=== PATIENT | female | born 1990 | race Caucasian/White ===

== ENCOUNTER 2017-11-12 15:15 | Emergency (ER) | payer BC | END 2017-11-12 15:58 | disposition left against medical advice (07) | LOC: ERS 15:15 | DX: Z53.21 Procedure and treatment not carried out due to patient leaving prior to being seen by health care provider (principal) ==

== ENCOUNTER 2017-11-28 11:21 | Emergency (ER) | payer BC, OTHER | END 2017-11-28 11:48 | disposition home or self-care (01) | LOC: ERS 11:21 | DX: O99.613 Diseases of the digestive system complicating pregnancy, third trimester (principal); K02.9 Dental caries, unspecified; O99.343 Other mental disorders complicating pregnancy, third trimester; F41.9 Anxiety disorder, unspecified; Z3A.30 30 weeks gestation of pregnancy | CPT/HCPCS: 99282 ==

== ENCOUNTER 2018-01-19 15:01 | Day surgery (SDC) | payer BC, OTHER ==
[2018-01-19 15:28] VITALS: BP 135/92
[2018-01-19 15:29] VITALS: BMI 24.8
[2018-01-19] MEDS ORDERED: Ondansetron HCl/PF 4 MG/2 ML Vial IVP PRN (16:18)
[2018-01-19] MEDS ORDERED: Lactated Ringer's 1,000 ML IV SCH ×2 (16:30)
[2018-01-19 16:57] LABS: #Eosinphils 0.1 thou/uL (0.0-0.7); #Monocytes 0.5 thou/uL (0.11-0.59); #Neutrophils 5.7 thou/uL (1.40-6.50); %Basophils 0.1 % (0.0-1.0); %Eosinophils 0.9 % (0.0-10.0); %Lymphocytes 24.1 % (21.0-51.0); %Monocytes 6.1 % (0.0-10.0); %Neutrophils 68.7 % (42.0-75.0); Hemoglobin 10.5 g/dL (12.0-16.0); Mean Corpuscular HGB CONC 35.9 g/dL (32.0-36.0); Mean Corpuscular Hemoglobin 32.4 pg (27.0-31.0); Mean Corpuscular Volume 90.4 fL (78.0-98.0); Mean Platelet Volume 7.2 fL (7.4-10.4); Platelet Count 154 thou/uL (130-400); RBC Distribution Width 14.8 % (11.5-14.5); Red Blood Cell (RBC) Count 3.24 mill/uL (4.20-5.40); White Blood Cell (WBC) Count 8.3 thou/uL (4.8-10.8)
[2018-01-19 17:13] LABS: AST (SGOT) 16 U/L (5-34); Anion Gap 14 mmol/L (10-20); BUN (Urea Nitrogen) 5 mg/dL (7.0-18.7); Calc. Creatinine Clearance 176 mL/min (70-130); Calcium 9.1 mg/dL (7.8-10.44); Carbon Dioxide 18 mmol/L (22-29); Chloride 108 mmol/L (98-107); Estimated GFR-MDRD Greater than 90; Glucose 80 mg/dL (70-105); Potassium 3.3 mmol/L (3.5-5.1); Sodium 137 mmol/L (136-145)
[2018-01-19] MEDS ORDERED: Acetaminophen 1,000 MG in Premix Bag 1 BAG IVPB SCH (18:30)
[2018-01-19] MEDS ORDERED: Promethazine HCl 25 MG/ML VIAL IM/IV PRN (19:23)
--- NOTE | 2018-01-19 20:51 | PRG ---
DATE OF SERVICE: 01/19/2018 TIME OF SERVICE: 2000 hours OB ED NOTE PRESENTING COMPLAINT: "I feel like I have the flu and occasional contractions." HISTORY OF PRESENT ILLNESS: Ms. Mar is a 27-year-old 4, para 2, status post x2 with an TOMEKA in a week and a half, placing her at 38 and 3 weeks, who presents complaining of flu-like sym ptoms, myalgias. She reports an active fetus and occasional contractions. She denies rupture of mem branes. OBSTETRIC AND GYNECOLOGIC HISTORY: x2. No history of dysplasia. No history of STDs. Blood typ e O positive, antibody negative, Pap negative, rubella immune, VDRL nonreactive. Hepatitis B, GC chl amydia negative. The patient's group B strep is pending. Of note, on review of the hospital labs, t he patient had 2 positive group B strep urine cultures back in 2016. PAST MEDICAL HISTORY: Denies. PAST SURGICAL HISTORY: Denies. ALLERGIES: Denies. MEDICATIONS: vitamins. SOCIAL HISTORY: Denies tobacco, alcohol, or drug abuse. FAMILY HISTORY: Noncontributory. REVIEW OF SYSTEMS: Noncontributory. PHYSICAL EXAMINATION: GENERAL: White female, somewhat uncomfortable in appearance. VITAL SIGNS: Temperature 99.9, pulse 105, blood pressure 135/92, respirations 18. HEENT: Within normal limits. LUNGS: Clear to auscultation bilaterally. HEART: Regular rhythm. BREASTS: No masses bilaterally. ABDOMEN: Soft, nontender. No rebound or guarding. PELVIC: Vulva without lesions. Vagina without discharge. Cervix, parous, 1 to 2, 50, and -2. Ceph alic, bag of water intact, ballots with ease. EXTREMITIES: Without clubbing, cyanosis, or edema. LABORATORY STUDIES: White count was normal at 8.3, hematocrit was 29.3, platelet count was 154. Bas e met was within normal limits and AST was normal. The patient received approximately a liter and a half to 2 liters of IV fluids as well as Ofirmev, Zo emily, and Phenergan. She felt marginally better. Her temperature decreased to 99.5. Her pulse decr eased to 91. As I discussed with the patient, it appeared that she just had a viral syndrome without any localizing foci. She was discharged home. She is to follow up in [address] Conn with [facility].
[2018-01-19 21:17] VITALS: TEMP 99.2
== END 2018-01-19 21:00 | disposition home health service (06) ==
LOC: L&D/OP 15:01
PROVIDERS: ATTEND Obstetrics & Gynecology
DX: O99.89 Other specified diseases and conditions complicating pregnancy, childbirth and the puerperium (principal); J11.1 Influenza due to unidentified influenza virus with other respiratory manifestations; M79.1 Myalgia; Z3A.38 38 weeks gestation of pregnancy
CPT/HCPCS: 36415; 59025; 80048; 84450; 85025; 96360; 96361; 96366; 96372; 96375; 99283; J0131; J2405; J2550

== ENCOUNTER 2018-01-28 18:44 | Inpatient (IN) | payer BC, OTHER ==
[~2018-01-28 18:44] MED LIST: Acetaminophen/Codeine 30-300mg Tablet PO PRN; Lidocaine 1% (PF) 30 ML VIAL SC PRN; Misoprostol 200 MCG TAB PR PRN; NS / Oxytocin 40 units/1000ml 1,000 ML IV PRN; NS w/ Oxytocin 10 units 500 ML IV SCH; Ondansetron HCl/PF 4 MG/2 ML Vial IVP PRN; Promethazine HCl 25 MG/ML VIAL IM PRN
[2018-01-28] MEDS ORDERED: Sodium Chloride 0.9% (PF) 10 ML VIAL ONE (20:58)
[2018-01-28] MEDS ORDERED: Lidocaine 2% MPF 10 ML AMP (For Epidural Use) ONE (20:58)
[2018-01-28] MEDS ORDERED: Bupivacaine 0.25% HCL 30 ML VIAL ONE (20:58)
[2018-01-28 22:18] VITALS: BMI 24.9
[2018-01-28] MEDS: Lactated Ringer's 1,000 ML IV SCH (22:23)
[2018-01-28] MEDS: Misoprostol 100 MCG TAB VAG SCH (22:47)
[2018-01-28 22:49] LABS: Hemoglobin 10.6 g/dL (12.0-16.0); Mean Corpuscular HGB CONC 35.5 g/dL (32.0-36.0); Mean Corpuscular Hemoglobin 32.1 pg (27.0-31.0); Mean Corpuscular Volume 90.6 fL (78.0-98.0); Mean Platelet Volume 7.2 fL (7.4-10.4); Platelet Count 147 thou/uL (130-400); RBC Distribution Width 14.7 % (11.5-14.5); Red Blood Cell (RBC) Count 3.29 mill/uL (4.20-5.40); White Blood Cell (WBC) Count 9.1 thou/uL (4.8-10.8)
[2018-01-28] MEDS ORDERED: Zolpidem Tartrate 5 MG TAB PO PRN (23:24)
[2018-01-28 23:28] LABS: HBSAg Index 0.17 S/CO (0-0.99); Hep B Surf Ag Non-Reactive S/CO (NonReactive); Syphilis Antibody Nonreactive (Nonreactive); Syphilis Antibody Index 0.05 S/CO (<1.00 Non-Reactive)
[2018-01-29] MEDS ORDERED: Butorphanol Tartrate 1 MG/ML VIAL ONE (01:22)
[2018-01-29] MEDS ORDERED: DISCONTINUE ALL PREVIOUS NARCOTICS FS SCH (01:30)
[2018-01-29] MEDS: Lactated Ringer's 1,000 ML IV SCH ×2 (01:56→08:33)
[2018-01-29] MEDS: Bupivacaine 0.75% 13.4 ML, fentaNYL Citrate/PF 400 MCG in Sodium Chloride 0.9% 78.6 ML EPIDURAL SCH ×2 (02:14→08:26)
[2018-01-29] MEDS ORDERED: Ondansetron HCl/PF 4 MG/2 ML Vial IVP PRN (02:16)
[2018-01-29] MEDS ORDERED: ePHEDrine/0.9% NaCl/PF SYRINGE 50 mg/10 ml SLOW IVP PRN (02:16)
[2018-01-29] MEDS ORDERED: Lactated Ringer's 500 ML IV PRN (02:16)
[2018-01-29] MEDS ORDERED: diphenhydrAMINE 50 MG/ML VIAL IVP PRN (02:16)
[2018-01-29] MEDS ORDERED: Eucerin (Mineral Oil/Petrolatum,White) 30 gm Jar TOP PRN (02:16)
[2018-01-29] MEDS ORDERED: Acetaminophen 325 MG TAB PO PRN (02:16)
[2018-01-29] MEDS ORDERED: Naloxone HCl 0.4 mg/ml Vial IVP PRN ×2 (02:16)
[2018-01-29] MEDS ORDERED: Promethazine HCl 25 MG/ML VIAL IM PRN (02:16)
[2018-01-29] MEDS ORDERED: Communication Order-Pharmacy FS SCH (02:30)
[2018-01-29] MEDS ORDERED: fentaNYL Citrate/PF 400 MCG, Bupivacaine 0.5% 20 ML in Sodium Chloride 0.9% 72 ML EPIDURAL SCH (02:30)
[2018-01-29] MEDS: Misoprostol 100 MCG TAB VAG SCH (04:35)
[2018-01-29] MEDS ORDERED: Calcium Carbonate 500 MG ChewTAB PO SCH (07:45)
[2018-01-29] MEDS ORDERED: Carboprost 250 MCG/ML AMP ONE (10:18)
[2018-01-29] MEDS ORDERED: Milk Of Magnesia 30 ML UDCUP PO PRN (12:49)
[2018-01-29] MEDS ORDERED: NS / Oxytocin 40 units/1000ml 1,000 ML IV SCH (12:49)
[2018-01-29] MEDS ORDERED: Adacel (T-DAP) 0.5 ML VIAL IM ONE (12:49)
[2018-01-29] MEDS ORDERED: diphenhydrAMINE 25 MG CAP PO PRN (12:49)
[2018-01-29] MEDS ORDERED: Benzocaine/Menthol 20-0.5% 60 ML CAN TOP PRN (12:49)
[2018-01-29] MEDS ORDERED: Methylergonovine 0.2 MG/ML VIAL IM PRN (12:49)
[2018-01-29] MEDS ORDERED: Preparation H Ointment 28 GM TUBE PR PRN (12:49)
[2018-01-29] MEDS ORDERED: Lanolin Ointment 7 GM TUBE TOP PRN (12:49)
[2018-01-29] MEDS ORDERED: Bisacodyl 10 MG SUPP PR PRN (12:49)
[2018-01-29] MEDS ORDERED: NS / Oxytocin 40 units/1000ml 1,000 ML ONE (13:04)
[2018-01-29] MEDS: Ibuprofen 800 MG TAB PO SCH (13:34)
[2018-01-29] MEDS: Ferrous Sulfate 325 MG TAB PO SCH (14:08)
[2018-01-29] MEDS: traMADol HCl 50 MG TAB PO PRN (17:28)
[2018-01-29] MEDS ORDERED: Loperamide HCl 2 MG CAP PO SCH (18:45)
[2018-01-30] MEDS: Ibuprofen 800 MG TAB PO SCH ×3 (02:05→13:48)
[2018-01-30] MEDS: Docusate Calcium (SURFAK) 240 MG CAP PO SCH ×3 (02:05→07:43)
[2018-01-30] MEDS: traMADol HCl 50 MG TAB PO PRN ×2 (02:11→07:40)
[2018-01-30] MEDS ORDERED: Loperamide HCl 2 MG CAP PO SCH (02:15)
[2018-01-30] MEDS: Ferrous Sulfate 325 MG TAB PO SCH (07:38)
--- NOTE | 2018-01-30 07:56 | PDOC.PP ---
Post Progress Note Post Day #: 1 Subjective: No orthostatic symptoms. PO intake tolerated: yes Flatus: yes Ambulation: yes Vital Signs (12 hours) Temp Pulse Resp 01/29/18 20:00 98.7 F 75 18 Weight Weight 159 lb - Physical Examination General: NAD Cardiovascular: no m/r/g, RRR Respiratory: clear to auscultation bilaterally, non-labored breathing Abdominal: + bowel sounds, lochia, no distention, appropriately TTP Result Diagrams: 01/28/18 22:33 Additional Labs: Post Labs Blood Type O POSITIVE 01/28/18 22:33 Hep Bs Antigen Non-Reactive S/CO (NonReactive) 01/28/18 22:33 - Assessment/Plan Post day 1 . PPH of 1300 ml. Vitals are stable. No resting tachycardia. Hemagram pending. Oral iron and post care.
[2018-01-30 09:30] LABS: Hemoglobin 8.8 g/dL (12.0-16.0); Mean Corpuscular HGB CONC 34.2 g/dL (32.0-36.0); Mean Corpuscular Hemoglobin 31.4 pg (27.0-31.0); Platelet Count 135 thou/uL (130-400); RBC Distribution Width 14.7 % (11.5-14.5); White Blood Cell (WBC) Count 13.7 thou/uL (4.8-10.8)
[2018-01-30 10:37] VITALS: BP 118/78; TEMP 98.1
== END 2018-01-30 14:55 | disposition home or self-care (01) | DRG 774 ==
LOC: L&D 21:37 → EEVIPCON 21:37 → 3SW 01-29 13:17
PROVIDERS: ADMIT Obstetrics & Gynecology; ATTEND Obstetrics & Gynecology
PROC: 10E0XZZ Delivery of Products of Conception, External Approach (ICD-10-PCS; principal; 2018-01-29)
PROC: 0KQM0ZZ Repair Perineum Muscle, Open Approach (ICD-10-PCS; 2018-01-29)
PROC: 3E0P7VZ Introduction of Hormone into Female Reproductive, Via Natural or Artificial Opening (ICD-10-PCS; 2018-01-29)
PROC: 3E033VJ Introduction of Other Hormone into Peripheral Vein, Percutaneous Approach (ICD-10-PCS; 2018-01-29)
PROC: 10907ZC Drainage of Amniotic Fluid, Therapeutic from Products of Conception, Via Natural or Artificial Opening (ICD-10-PCS; 2018-01-29)
DX: O70.1 Second degree perineal laceration during delivery (principal); O72.1 Other immediate postpartum hemorrhage; Z37.0 Single live birth; Z3A.39 39 weeks gestation of pregnancy
CPT/HCPCS: 36415; 51702; 85027; 86780; 86850; 86900; 86901; 87340; J0595; J2001; J3010; J3490; J7050; S0020

== ENCOUNTER 2018-12-08 21:29 | Emergency (ER) | payer BC ==
[2018-12-08 22:19] LABS: #Basophils 0.1 thou/uL (0.0-0.2); #Eosinphils 0.1 thou/uL (0.0-0.7); #Lymphocytes 3.3 thou/uL (1.20-3.40); #Monocytes 0.6 thou/uL (0.11-0.59); #Neutrophils 3.9 thou/uL (1.40-6.50); %Basophils 0.9 % (0.0-1.0); %Eosinophils 1.2 % (0.0-10.0); %Monocytes 7.3 % (0.0-10.0); %Neutrophils 49.6 % (42.0-75.0); Hemoglobin 11.9 g/dL (12.0-16.0); Mean Corpuscular HGB CONC 34.1 g/dL (32.0-36.0); Mean Corpuscular Volume 87.9 fL (78.0-98.0); Mean Platelet Volume 7.3 fL (7.4-10.4); Platelet Count 349 thou/uL (130-400); RBC Distribution Width 15.1 % (11.5-14.5); Red Blood Cell (RBC) Count 3.97 mill/uL (4.20-5.40); White Blood Cell (WBC) Count 7.9 thou/uL (4.8-10.8)
[2018-12-08 22:32] LABS: BHCG - Serum Negative (NEGATIVE); Pregs Control Background? CLEAR/WHITE (CLR/WHITE); Pregs Control Bar Appear? YES (CONTROL BAR)
[2018-12-08 22:40] LABS: ALT (SGPT) 10 U/L (8-55); AST (SGOT) 17 U/L (5-34); Albumin 4.5 g/dL (3.5-5.0); Alkaline Phosphatase 68 U/L (40-150); Anion Gap 12 mmol/L (10-20); BUN (Urea Nitrogen) 12 mg/dL (7.0-18.7); Bilirubin, Total 0.3 mg/dL (0.2-1.2); Calc. Creatinine Clearance 0 mL/min (70-130); Calcium 8.7 mg/dL (7.8-10.44); Carbon Dioxide 23 mmol/L (22-29); Chloride 110 mmol/L (98-107); Estimated GFR-MDRD 89; Globulin 2.7 g/dL (2.4-3.5); Glucose 92 mg/dL (70-105); Potassium 4.1 mmol/L (3.5-5.1); Protein, Total 7.2 g/dL (6.0-8.3); Sodium 141 mmol/L (136-145)
[2018-12-08 22:46] LABS: Bacteria/HPF 1+ HPF (None Seen); RBC/HPF 21-50 HPF (0-3)
[2018-12-08 22:47] LABS: Bilirubin Negative (Negative); Blood, Urine Moderate (Negative); Clarity TURBID (Clear); Glucose, Urine (Dipstick) Negative (Negative); Leukocyte Moderate (Negative); Nitrite Negative (Negative); Protein, Urine (Dipstick) Trace mg/dL (Neg-Trace); Specific Gravity, Urine 1.021 (1.002-1.036); Urobilinogen 0.2 mg/dL (0.2-1.0); pH, Urine 7.5 (5.0-9.0)
[2018-12-08 22:54] LABS: Pathc Cast-AUWi Flag 7.34 (0-2.49)
[2018-12-08 22:56] LABS: Hyaline Casts/LPF NONE SEEN LPF (0-3 Hyaline); Other Microscopic Description Less than 2 mL rec'd
--- NOTE | 2018-12-08 23:52 | CT ---
CT Abdomen Pelvis WO Con 12/08/2018 10:01 PM HISTORY: Bilateral flank pain greater on the right. COMPARISON: 05/11/2016 Technique: Multiple contiguous axial CT images are obtained through the abdomen and pelvis without IV contrast. Coronal reformats are provided. FINDINGS: This examination is limited for the evaluation of solid organs and vascular structures due to the lac k of intravenous contrast. Lower Chest: within normal limits. Abdomen: Liver: Within normal limits Gallbladder: Postcholecystectomy changes again seen. Pancreas: within normal limits. Spleen: within normal limits. Adrenals: within normal limits. Kidneys: Punctate nonobstructing bilateral renal calculi are again seen. There is no hydronephrosis p resent. Ureters: No ureteral calculus is seen.. Pelvis: Urinary bladder: within normal limits. Reproductive Organs: There is suggestion of a hypodense structure within the left ovary measuring 2.2 cm which may represent a left ovarian cyst. Lymph Nodes: No enlarged lymph nodes. Bowel: Postsurgical changes loops of bowel in the right abdomen are seen. Loops of small bowel are no rmal in caliber. Appendix: Not visualized. Peritoneum: No free fluid, free air, or fluid collection. Retroperitoneum: within normal limits. Vessels: Abdominal aorta is normal in caliber.. Abdominal Wall: within normal limits. Bones: within normal limits. IMPRESSION: 1. Stable nonobstructing punctate bilateral renal calculi 2. Postsurgical changes of loops of bowel in the right abdomen. 3. Cholecystectomy changes. 4. Probable small left ovarian cyst.
[2018-12-09] MEDS ORDERED: cefTRIAXone\\ROCEPHIN 1 GM VIAL ONE (00:24)
== END 2018-12-09 01:12 | disposition home or self-care (01) ==
LOC: ERS 21:29
DX: R10.9 Unspecified abdominal pain (principal); N39.0 Urinary tract infection, site not specified; F41.9 Anxiety disorder, unspecified; Z79.899 Other long term (current) drug therapy
CPT/HCPCS: 74176; 80053; 81003; 81015; 84703; 85025; 96361; 96365; J0696

== ENCOUNTER 2018-12-13 14:01 | Emergency (ER) | payer BC ==
[2018-12-13] MEDS ORDERED: Ibuprofen 200 MG TAB ONE (14:44)
--- NOTE | 2018-12-13 15:03 | RAD ---
XR Foot Rt 3 View STANDARD History: Right ankle 4 view Comparison: Injury. Fall. Findings: No acute fracture or malalignment. Lisfranc interval is maintained. No significant joint ef fusion Impression: No acute fracture or malalignment.
--- NOTE | 2018-12-13 15:04 | RAD ---
XR Ankle Rt 3 View STANDARD History: Injury Comparison: None. Findings: No acute fracture or malalignment. No lateral talar shift. Impression: No fracture or malalignment.
--- NOTE | 2018-12-13 15:04 | RAD ---
XR Foot Lt 3 View STANDARD History: Injury Comparison: None. Findings: No acute fracture or malalignment. Lisfranc interval is maintained. No significant ankle andrew int effusion. Impression: No acute fracture or malalignment.
== END 2018-12-13 15:22 | disposition home or self-care (01) ==
LOC: ERS 14:01
DX: M25.572 Pain in left ankle and joints of left foot (principal); M25.571 Pain in right ankle and joints of right foot; F41.9 Anxiety disorder, unspecified; Z79.899 Other long term (current) drug therapy; W10.9XXA Fall (on) (from) unspecified stairs and steps, initial encounter

== ENCOUNTER 2019-01-18 18:18 | Emergency (ER) | payer BC ==
[2019-01-18] MEDS ORDERED: Ondansetron PF 4 MG/2 ML Vial ONE ×2 (19:13→21:06)
[2019-01-18] MEDS ORDERED: Morphine 4 MG/ML VIAL ONE ×2 (19:13→21:06)
[2019-01-18 19:44] LABS: #Basophils 0.1 thou/uL (0.0-0.2); #Eosinphils 0.1 thou/uL (0.0-0.7); #Lymphocytes 3.4 thou/uL (1.20-3.40); #Monocytes 0.4 thou/uL (0.11-0.59); #Neutrophils 3.5 thou/uL (1.40-6.50); %Basophils 0.9 % (0.0-1.0); %Eosinophils 0.9 % (0.0-10.0); %Lymphocytes 45.5 % (21.0-51.0); %Monocytes 5.6 % (0.0-10.0); %Neutrophils 47.1 % (42.0-75.0); Hemoglobin 11.3 g/dL (12.0-16.0); Mean Corpuscular HGB CONC 32.4 g/dL (32.0-36.0); Mean Corpuscular Hemoglobin 28.9 pg (27.0-31.0); Mean Corpuscular Volume 89.4 fL (78.0-98.0); Mean Platelet Volume 7.4 fL (7.4-10.4); Platelet Count 250 thou/uL (130-400); RBC Distribution Width 14.6 % (11.5-14.5); White Blood Cell (WBC) Count 7.4 thou/uL (4.8-10.8)
[2019-01-18 19:56] LABS: BHCG - Serum Negative (NEGATIVE); Pregs Control Background? CLEAR/WHITE (CLR/WHITE); Pregs Control Bar Appear? YES (CONTROL BAR)
[2019-01-18 20:04] LABS: ALT (SGPT) Less than 7 U/L (8-55); AST (SGOT) 13 U/L (5-34); Albumin 4.3 g/dL (3.5-5.0); Alkaline Phosphatase 66 U/L (40-150); Anion Gap 8 mmol/L (10-20); BUN (Urea Nitrogen) 8 mg/dL (7.0-18.7); Bilirubin, Total 0.3 mg/dL (0.2-1.2); Calc. Creatinine Clearance 0 mL/min (70-130); Calcium 9.4 mg/dL (7.8-10.44); Carbon Dioxide 27 mmol/L (22-29); Chloride 110 mmol/L (98-107); Estimated GFR-MDRD Greater than 90; Globulin 2.5 g/dL (2.4-3.5); Glucose 87 mg/dL (70-105); Potassium 4.1 mmol/L (3.5-5.1); Protein, Total 6.8 g/dL (6.0-8.3); Sodium 141 mmol/L (136-145)
--- NOTE | 2019-01-18 20:26 | CT ---
EXAM: CT abdomen and pelvis without contrast PROVIDED CLINICAL HISTORY: Lower abdominal pain COMPARISON: 12/08/2018, 05/11/2016 FINDINGS: The visualized lung bases are free of significant opacity. There is a 2.4 cm slightly hypodense to remainder of the liver mass within the posterior segment of t he right hepatic lobe near the dome. Its appears similar to the prior examination and slightly larger than on the 2016 examination at which time it measured about 1.9 cm. Tiny bilateral nonobstructing renal calculi are again demonstrated. There is no evidence for ureteral or bladder calculi. There is conspicuous distention of the urinary bladder. There is no bowel dilatation, inflammatory fat stranding, free fluid or free air apparent. Postsurgic al changes are noted associated with the right colon. The appendix is not distinctly identified. The osseous structures demonstrate no concerning osteoblastic or osteolytic lesions. IMPRESSION: 1. Bilateral nonobstructing nephrolithiasis, similar to prior study. No evidence for ureteral calculu s. 2. Conspicuous distention of the urinary bladder. 3. 2.4 cm right liver mass, incompletely characterized on the basis of this examination. Nonemergent MRI abdomen with and without IV contrast recommended.
[2019-01-18 20:51] LABS: Bilirubin Negative (Negative); Blood, Urine 3+ (Negative); Clarity Clear (Clear); Glucose, Urine (Dipstick) Normal (Negative); Leukocyte Negative Leu/uL (Negative); Nitrite Negative (Negative); Protein, Urine (Dipstick) Negative (Neg-Trace); RBC/HPF 21-50 HPF (0-3); Urobilinogen Normal mg/dL (Less than 2); WBC/HPF 0-3 HPF (0-3)
[2019-01-18 20:53] LABS: Bacteria/HPF 1+ HPF (None Seen)
--- NOTE | 2019-01-18 21:10 | ULT ---
EXAM: Transabdominal pelvic ultrasound with Doppler PROVIDED CLINICAL HISTORY: Right lower quadrant pain COMPARISON: 08/13/2015 FINDINGS: Uterus measures about 10.2 x 4 x 5.8 cm and demonstrates a normal transabdominal sonographic appearan ce. Endometrial thickness is about 5 mm. Right ovary measures about 3.2 cm and appears sonographically unremarkable. Left ovary measures about 3.1 cm and appears sonographically unremarkable. Color Doppler and spectral analysis of the ovarian waveforms demonstrates flow bilaterally. There is no evidence for free pelvic fluid. IMPRESSION: No evidence for an acute process.
[2019-01-20 00:37] LABS: Chlamydia by PCR Not Detected (NotDetected); GC by PCR Not Detected (NotDetected)
== END 2019-01-18 21:58 | disposition home or self-care (01) ==
LOC: ERS 18:18
DX: N93.9 Abnormal uterine and vaginal bleeding, unspecified (principal); N94.6 Dysmenorrhea, unspecified
CPT/HCPCS: 36415; 74176; 76856; 81003; 81015; 84703; 87086; 87480; 87491; 87510; 87591; 87660; 93976; 96361; 96374; 96375; 96376; J2270; J2405

== ENCOUNTER 2019-04-09 03:35 | Emergency (ER) | payer BC ==
[2019-04-09 04:40] LABS: Bilirubin Negative (Negative); Blood, Urine Negative (Negative); Clarity Clear (Clear); Glucose, Urine (Dipstick) Normal (Negative); Leukocyte Negative Leu/uL (Negative); Nitrite Negative (Negative); Protein, Urine (Dipstick) Negative (Neg-Trace); Urobilinogen Normal mg/dL (Less than 2)
[2019-04-09 04:41] LABS: Pregnancy Test - Urine (BHCG) Negative (Negative)
[2019-04-09 04:42] LABS: Pregu Control Background? CLEAR/WHITE (CLR/WHITE); Pregu Control Bar Appear? YES (CONTROL BAR); Specific Gravity 1.008 (1.002-1.036)
[2019-04-09] MEDS ORDERED: Ketorolac Tromethamine 30 MG/ML VIAL ONE (04:46)
== END 2019-04-09 05:00 | disposition home or self-care (01) ==
LOC: ERS 03:35
DX: J11.1 Influenza due to unidentified influenza virus with other respiratory manifestations (principal); F41.9 Anxiety disorder, unspecified; Z79.899 Other long term (current) drug therapy
CPT/HCPCS: 81003; 81025; 99283; J1885

== ENCOUNTER 2019-05-11 16:45 | Emergency (ER) | payer BC ==
[2019-05-11 18:07] LABS: Bilirubin Negative (Negative); Blood, Urine Trace (Negative); Clarity Turbid (Clear); Glucose, Urine (Dipstick) Normal (Negative); Leukocyte 500 Leu/uL (Negative); Nitrite Negative (Negative); Protein, Urine (Dipstick) Negative (Neg-Trace); Urobilinogen Normal mg/dL (Less than 2)
[2019-05-11 18:19] LABS: Bacteria/HPF 2+ HPF (None Seen)
[2019-05-11 18:35] LABS: #Basophils 0.1 thou/uL (0.0-0.2); #Lymphocytes 2.9 thou/uL (1.20-3.40); #Monocytes 0.4 thou/uL (0.11-0.59); #Neutrophils 2.7 thou/uL (1.40-6.50); %Basophils 1.5 % (0.0-1.0); %Eosinophils 0.5 % (0.0-10.0); %Lymphocytes 47.6 % (21.0-51.0); %Neutrophils 44.4 % (42.0-75.0); Hemoglobin 12.1 g/dL (12.0-16.0); Mean Corpuscular HGB CONC 33.7 g/dL (32.0-36.0); Mean Corpuscular Volume 89.2 fL (78.0-98.0); Mean Platelet Volume 7.4 fL (7.4-10.4); Platelet Count 269 thou/uL (130-400); RBC Distribution Width 14.1 % (11.5-14.5); Red Blood Cell (RBC) Count 4.01 mill/uL (4.20-5.40); White Blood Cell (WBC) Count 6.2 thou/uL (4.8-10.8)
[2019-05-11] MEDS ORDERED: Ketorolac Tromethamine 60 MG/2 ML VIAL ONE (18:48)
[2019-05-11] MEDS ORDERED: Ondansetron PF 4 MG/2 ML Vial ONE (18:48)
[2019-05-11] MEDS ORDERED: cefTRIAXone\\ROCEPHIN 1 GM VIAL ONE (18:50)
[2019-05-11] MEDS ORDERED: Ketorolac Tromethamine 30 MG/ML VIAL ONE (18:51)
[2019-05-11 19:00] LABS: ALT (SGPT) 7 U/L (8-55); AST (SGOT) 13 U/L (5-34); Albumin 4.6 g/dL (3.5-5.0); Alkaline Phosphatase 64 U/L (40-110); Anion Gap 14 mmol/L (10-20); BUN (Urea Nitrogen) 6 mg/dL (7.0-18.7); Bilirubin, Total 0.3 mg/dL (0.2-1.2); Calc. Creatinine Clearance 0 mL/min (70-130); Calcium 9.3 mg/dL (7.8-10.44); Carbon Dioxide 26 mmol/L (22-29); Chloride 106 mmol/L (98-107); Estimated GFR-MDRD Greater than 90; Globulin 2.5 g/dL (2.4-3.5); Glucose 87 mg/dL (70-105); Potassium 3.7 mmol/L (3.5-5.1); Protein, Total 7.1 g/dL (6.0-8.3); Sodium 142 mmol/L (136-145)
[2019-05-11 19:05] LABS: BHCG - Serum Negative (NEGATIVE); Pregs Control Background? CLEAR/WHITE (CLR/WHITE); Pregs Control Bar Appear? YES (CONTROL BAR)
[2019-05-11 19:37] LABS: CK (CPK) 77 U/L (29-168); Lipase 5 U/L (8-78)
[2019-05-11] MEDS ORDERED: Acetaminophen 500 MG TAB ONE (19:39)
--- NOTE | 2019-05-11 19:39 | CT ---
CT Stone Protocol: 05/11/2019 6:33 PM HISTORY: Flank pain COMPARISON: 01/18/2019 TECHNIQUE: Multiple contiguous axial images were obtained and a CT of the abdomen and pelvis without IV contrast . Coronal and sagittal reformats were performed. FINDINGS: This examination is limited for the evaluation of solid organs and vascular structures due to the lac k of intravenous contrast. Lower Chest: within normal limits. Abdomen: Liver: within normal limits. Bile Ducts: Normal caliber. Gallbladder: Removed. Pancreas: within normal limits. Spleen: within normal limits. Adrenals: within normal limits. Kidneys: 1 to 2 mm bilateral nonobstructing renal calcifications. Pelvis: Reproductive Organs: No pelvic masses. Ureters: within normal limits. Bladder: within normal limits. Bowel: Normal caliber. Mesenteric Lymph Nodes: No enlarged mesenteric lymph nodes. Peritoneum: No ascites or free air, no fluid collection. Vessels: Normal caliber aorta Retroperitoneum: within normal limits. Abdominal Wall: within normal limits. Bones: Unremarkable. IMPRESSION: Nonobstructing bilateral renal calculi
== END 2019-05-11 20:00 | disposition home or self-care (01) ==
LOC: ERS 16:45
DX: N39.0 Urinary tract infection, site not specified (principal); F41.9 Anxiety disorder, unspecified; F17.210 Nicotine dependence, cigarettes, uncomplicated; Z87.442 Personal history of urinary calculi; Z79.899 Other long term (current) drug therapy
CPT/HCPCS: 36415; 74176; 80053; 81003; 81015; 82550; 83690; 84703; 85025; 87077; 87086; 87186; 96365; 96375; J0696; J1885; J2405

== ENCOUNTER 2024-06-13 16:03 | Emergency (ER) | payer BC, SELFPAY ==
[2024-06-13 16:53] LABS: #Basophils 0.05 10x3/uL (0.0-0.2); %Basophils 0.6 % (0.0-1.0); %Eosinophils 0.6 % (0.0-10.0); %Lymphocytes 41.6 % (21.0-51.0); %Monocytes 6.9 % (0.0-10.0); Hematocrit 31.1 % (36.0-47.0); Hemoglobin 9.5 g/dL (12.0-16.0); Mean Corpuscular HGB CONC 30.5 g/dL (32.0-36.0); Mean Corpuscular Hemoglobin 22.9 pg (27.0-31.0); Mean Corpuscular Volume 75.1 fL (78.0-98.0); Mean Platelet Volume 9.9 fL (7.4-10.4); Platelet Count 335 10x3/uL (130-400); RBC Distribution Width 17.1 % (11.5-14.5); Red Blood Cell (RBC) Count 4.14 mill/uL (4.20-5.40)
[2024-06-13 17:07] LABS: ALT (SGPT) 11 U/L (8-55); AST (SGOT) 17 U/L (5-34); Albumin 3.8 g/dL (3.5-5.0); Alkaline Phosphatase 42 U/L (40-110); Anion Gap 15 mmol/L (10-20); BUN (Urea Nitrogen) 10 mg/dL (7.0-18.7); Bilirubin, Total 0.2 mg/dL (0.2-1.2); Calc. Creatinine Clearance 0 mL/min (70-130); Calcium 9.2 mg/dL (7.8-10.44); Carbon Dioxide 19 mmol/L (22-29); Chloride 107 mmol/L (98-107); Estimated GFR 106; Globulin 3.3 g/dL (2.4-3.5); Glucose 100 mg/dL (70-105); Magnesium 1.6 mg/dL (1.6-2.6); Potassium 4.3 mmol/L (3.5-5.1); Protein, Total 7.1 g/dL (6.0-8.3); Sodium 137 mmol/L (136-145)
[2024-06-13 17:13] LABS: Troponin I Less than 0.010 ng/mL (< 0.028)
== END 2024-06-13 19:29 | disposition home or self-care (01) ==
LOC: ERS 16:03
DX: R07.89 Other chest pain (principal); F17.210 Nicotine dependence, cigarettes, uncomplicated
CPT/HCPCS: 36415; 71045; 80053; 83690; 83735; 84484; 85025; 85379; 93005